=== PATIENT | female | born 1935 | race Caucasian/White ===

== ENCOUNTER 2022-12-14 10:14 | Emergency (ER) | payer BC, OTHER ==
[2022-12-14 10:45] VITALS: BP 167/80; PULSE 75; RESP 18; TEMP 98; BMI 20.5
[2022-12-14] MEDS ORDERED: LIDOCAINE 5% TOPICAL PATCH TP ONE (11:26)
[2022-12-14] MEDS ORDERED: ACETAMINOPHEN 500 MG TABLET (FP) PO ONE (11:26)
[2022-12-14] MEDS ORDERED: ACETAMINOPHEN 500 MG TABLET (FP) ONE (11:29)
[2022-12-14] MEDS ORDERED: LIDOCAINE PATCH REMOVAL MC SCH (22:00)
== END 2022-12-14 13:09 | disposition home or self-care (01) ==
LOC: JERFT 10:14
DX: M54.6 Pain in thoracic spine (principal); V89.2XXA Person injured in unspecified motor-vehicle accident, traffic, initial encounter; Y93.I9 Activity, other involving external motion; Y92.488 Other paved roadways as the place of occurrence of the external cause
CPT/HCPCS: 72070-TC-FY; 99283-25